=== PATIENT | male | born 1975 | race Caucasian/White ===

== ENCOUNTER 2019-09-06 20:01 | Emergency (ER) | payer MEDICAID, OTHER, SELFPAY ==
[~2019-09-06] VITALS: Ht 182.9 cm; Wt 91.8 kg
[2019-09-06 22:06] LABS: BASO # 0.1 10^3/uL (0.0-0.2); EOS # 0.2 10^3/uL (0.0-0.5); EOS % 2.9 % (0.0-3.0); HEMATOCRIT 51.2 % (42.0-52.0); HEMOGLOBIN 16.9 g/dl (13.5-17.5); LYMPH # 1.8 10^3/uL (1.5-5.0); MEAN CORPUSCULAR HEMOGLOBIN 29.5 pg (27.0-33.0); MEAN CORPUSCULAR VOLUME 89.4 fl (80.0-96.0); MONO # 0.7 10^3/uL (0.0-0.8); MONO % 9.9 % (0.0-5.0); NEUTROPHILS # 4.5 10^3/uL (1.5-8.5); NEUTROPHILS % 60.4 % (36.0-66.0); PLATELET COUNT, AUTOMATED 234 10^3/uL (150-450); RED BLOOD COUNT 5.73 10^6/uL (4.30-6.10); WHITE BLOOD COUNT 7.4 10^3/uL (4.0-10.0)
[2019-09-06] MEDS ORDERED: ISOVUE-370 76% 100ML VIAL As Ordered ONE (22:12)
[2019-09-06] MEDS ORDERED: METOCLOPRAMIDE INJ 10MG/2ML VIAL (J2765 PER 1) IV ONE (22:15)
[2019-09-06] MEDS ORDERED: NS 1,000 ML IV ONE (22:15)
[2019-09-06 22:38] LABS: ALBUMIN 3.5 GM/DL (3.2-5.2); ALT/SGPT 1489 U/L (12-78); BILIRUBIN,DIRECT 6.9 MG/DL (0.0-0.2); BILIRUBIN,TOTAL 11.7 MG/DL (0.2-1.0); LIPASE 196 U/L (73-393); TOTAL PROTEIN 7.3 GM/DL (6.4-8.2)
[2019-09-06 23:11] LABS: BILIRUBIN, URINE MANUAL OBSCURED (NEGATIVE); GLUCOSE, URINE (UA) MANUAL OBSCURED mg/dL (NEGATIVE); KETONE, URINE MANUAL OBSCURED mg/dL (NEGATIVE); UROBILINOGEN, URINE MANUAL OBSCURED mg/dl (NORMAL)
[2019-09-06 23:19] LABS: RBC, URINE NONE SEEN /hpf (0-3); SQUAMOUS EPITHELIAL CELL URINE SMALL AMOUNT /hpf (SMALL AMT); TRANSITIONAL EPI CELLS, URINE MOD AMOUNT /hpf
[2019-09-06 23:20] LABS: AMORPHOUS SEDIMENT, URINE SMALL AMOUNT (NEGATIVE); BACTERIA, URINE NONE SEEN; MUCUS, URINE LARGE AMOUNT (NEGATIVE)
[2019-09-06 23:21] LABS: HYALINE CAST, URINE NONE SEEN /lpf (0-1)
--- NOTE | 2019-09-06 23:21 | REPVR ---
PROCEDURE INFORMATION: Exam: CT Abdomen And Pelvis With Contrast Exam date and time: 09/06/2019 10:50 PM Age: 43 years old Clinical indication: Vomiting; Additional info: Jaundice, vomiting all po TECHNIQUE: Imaging protocol: Computed tomography of the abdomen and pelvis with intravenous contrast. Radiation optimization: All CT scans at this facility use at least one of these dose optimization techniques: automated exposure control; mA and/or kV adjustment per patient size (includes targeted exams where dose is matched to clinical indication); or iterative reconstruction. Contrast material: ISOVUE 370; Contrast volume: 100 ml; Contrast route: INTRAVENOUS (IV); COMPARISON: No relevant prior studies available. FINDINGS: Liver: There is hypodense fatty infiltration of the liver. No hepatic mass visualized. Gallbladder and bile ducts: No calcified stones. No ductal dilation. Pancreas: There is prominence of the pancreatic head, without a well-defined mass. No acute peripancreatic stranding visualized. No pancreatic duct dilatation. Spleen: Mild splenomegaly visualized. The spleen measures 13.7 cm in length. A splenule is identified. Adrenals: No mass. Kidneys and ureters: Unremarkable as visualized. No hydronephrosis. Stomach and bowel: Colonic wall thickening visualized, most significant involving the left hemicolon. This is suggestive of incomplete distension or colitis. A small sigmoid diverticulum is identified. Mild gaseous and fecal distention of the rectum. Evaluation of bowel is limited by the absence of oral contrast. No bowel obstruction. Appendix: No evidence of appendicitis. Intraperitoneal space: No free air. No significant fluid collection. Vasculature: No abdominal aortic aneurysm. Lymph nodes: There is a mildly enlarged portacaval lymph node measuring 1.8 x 1.2 cm. Additional enlarged peripancreatic and periportal lymph nodes are identified. These lymph nodes are nonspecific as to etiology. Bladder: Nonspecific wall thickening of the bladder. Reproductive: Unremarkable as visualized. Bones/joints: No acute fracture. Soft tissues: Minimal herniation of fat into the umbilicus. IMPRESSION: 1. There is fatty infiltration of the liver. 2. Mild splenomegaly. 3. Colonic wall thickening visualized, most significant involving the left hemicolon. This is suggestive of incomplete distension or colitis. A small sigmoid diverticulum is identified. 4. Nonspecific wall thickening of the bladder. Correlation with urinalysis recommended. 5. There is a mildly enlarged portacaval lymph node. Additional enlarged peripancreatic and periportal lymph nodes are identified. These lymph nodes are nonspecific as to etiology. 6. Additional findings described above. Electronically signed by: Barber Gardner On 09/06/2019 23:21:30 PM
[2019-09-07] MEDS ORDERED: ONDA4TAB6 PO (00:43)
[2019-09-07 01:02] VITALS: BP 139/93
--- NOTE | 2019-09-07 06:09 | REP ---
Clinical: Trauma. Technique: AP, lateral, bilateral oblique views left hand . Findings: The osseous structures and joint spaces are intact and normal. There is no evidence for acute fracture or dislocation. Surrounding soft tissues are unremarkable. No subcutaneous emphysema or radiodense foreign body. Impression: No acute fracture or dislocation. Electronically Signed by Cornelio Montesinos MD 09/07/2019 06:00 A
[2019-09-07 17:57] LABS: HEPATITIS B SURFACE ANTIGEN NEGATIVE (NEGATIVE)
[2019-09-07 18:24] LABS: HEPATITIS B CORE ANTIBODY IGM NEGATIVE (NEGATIVE)
[2019-09-07 18:26] LABS: HEPATITIS A ANTIBODY IGM NEGATIVE (NEGATIVE)
[2019-09-07 18:37] LABS: HEPATITIS C VIRUS ABY INDEX 5.6 INDEX (<0.8)
--- NOTE | 2019-09-08 07:43 | ED PDOC ---
Post-Departure Follow-Up radiology rpeort faxed to Winifred Bush MD Sep 08, 2019 07:43
== END 2019-09-07 01:05 | disposition home or self-care (01) ==
LOC: M ED 20:01
DX: B19.9 Unspecified viral hepatitis without hepatic coma (principal); R11.2 Nausea with vomiting, unspecified; K76.0 Fatty (change of) liver, not elsewhere classified; R16.1 Splenomegaly, not elsewhere classified; R59.9 Enlarged lymph nodes, unspecified; F17.200 Nicotine dependence, unspecified, uncomplicated; Z88.0 Allergy status to penicillin; Z91.030 Bee allergy status
CPT/HCPCS: 73130; 74177; 80047; 80076; 81000; 83690; 85025; 86705; 86709; 86803; 87086; 87340; 87521; 96361; 96374; 99284; J2765; Q9967